=== PATIENT | male | born 1960 | race Caucasian/White ===

== ENCOUNTER → 2023-11-27 09:17 | Outpatient (REF) | payer BC, SELFPAY | LOC: DHCBC HW 09:17 | PROVIDERS: ATTENDING PHYSICIAN Internal Medicine; FAMILY PHYSICIAN Internal Medicine | DX: I25.10 Atherosclerotic heart disease of native coronary artery without angina pectoris (principal); R06.09 Other forms of dyspnea | CPT/HCPCS: 93306 ==

== ENCOUNTER → 2023-12-16 08:16 | Outpatient (REF) | payer BC, SELFPAY | LOC: DHCBC/DCA 08:16 | PROVIDERS: ATTENDING PHYSICIAN Internal Medicine; FAMILY PHYSICIAN Internal Medicine | DX: R06.09 Other forms of dyspnea (principal); I25.10 Atherosclerotic heart disease of native coronary artery without angina pectoris | CPT/HCPCS: 78452; 93017; A9500 ==

== ENCOUNTER → 2024-02-16 | Outpatient (REF) | payer BC, SELFPAY | LOC: DHSLP | PROVIDERS: ATTENDING PHYSICIAN Internal Medicine | DX: G47.33 Obstructive sleep apnea (adult) (pediatric) (principal) | CPT/HCPCS: 95800 ==

== ENCOUNTER 2024-08-13 06:33 | Day surgery (SDC) | payer BC, SELFPAY ==
[2024-08-05 09:06] VITALS: BMI 36.8
[2024-08-05 11:08] LABS: Hematocrit 42.4 % (39.0-52.0); Hemoglobin 14.8 g/dL (13.0-18.0); Mean Corp Hgb Conc. 34.9 g/dL (33.0-37.0); Mean Corpuscular Hgb 30.3 pg (27.0-31.0); Mean Corpuscular Volume 86.7 fL (80.0-94.0); Mean Platelet Volume 9.5 fL (7.4-10.4); Platelet Count 233 10^3/uL (130-400); Red Blood Cell Count 4.89 10^6/uL (4.70-6.10); Red Cell Dist. Width 12.3 % (11.5-14.5); White Blood Cell Count 8.1 10^3/uL (4.8-10.8)
[2024-08-05 11:35] LABS: Blood Urea Nitrogen 17 mg/dl (9-20); Calcium 10.4 mg/dl (8.4-10.2); Carbon Dioxide 28 mmol/L (22-30); Chloride 101 mmol/L (98-107); Estimated Creatinine Clearance 107 ml/min; Glucose 107 mg/dl (70-99); Potassium 4.4 mmol/L (3.5-5.1); Sodium 143 mmol/L (135-145); eGFR > 60.00
[2024-08-13] VITALS (10 sets, daily range): BP systolic 130–154; BP diastolic 75–89; BMI 36.8
--- NOTE | 2024-08-13 10:48 | HP.FOC2 ---
Focused History & Physical
Chief Complaint
HPI:
Chief Complaint: Umbilical hernia
HPI / Indication for Planned Procedure: 63-year-old male recently seen in outpatient surgical evaluation secondary to a longstanding history of umbilical hernia that he has been following expectantly for a decade or longer. The hernia slowly
increased in size over the years. He has an awareness of the hernia being present and occasional mild discomfort but no significant pain. Outpatient evaluation confirmed the presence of a large, chronically incarcerated umbilical hernia. Patient
presents today for scheduled operative correction.
Relevant Past Medical History: Other (Dyslipidemia, hypertension, obesity with BMI of 38, TEMI on CPAP, mild ascending aortic dilation, CAD, hypothyroidism, congenital single kidney with CRI, former smoker)
Relevant Social History: Negative
Relevant Family History: Negative
Relevant Past Surgical History: Positive for (Appendectomy)
Review of Systems
Review of Pertinent Systems: All Systems Negative
Medication
See Medication form for detailed medications: Yes
Medication List (including Herbals & OTC):
allopurinol 100 mg tablet 100 mg PO DAILY 08/05/24
aspirin 81 mg capsule 81 mg PO DAILY 08/05/24
atorvastatin 20 mg tablet 20 mg PO DAILY 08/05/24
cholecalciferol (vitamin D3) 10 mcg (400 unit) chewable tablet (Vitamin D3) 10 mcg PO DAILY 08/05/24
escitalopram oxalate 10 mg tablet 10 mg PO DAILY 08/05/24
levothyroxine 200 mcg tablet (Synthroid) 200 mcg PO DAILY 08/05/24
losartan 100 mg tablet 100 mg PO DAILY 08/05/24
metformin 500 mg tablet 500 mg PO DAILY 08/05/24
milk thistle 500 mg capsule 250 mg PO DAILY 08/05/24
tirzepatide 2.5 mg/0.5 mL subcutaneous pen injector (Mounjaro) 2.5 mg SC QWEEK 08/05/24
Medications Reviewed: Yes
Allergies and Reactions
Patient has Allergies: No
Noted Allergies and Reactions:
Allergy/AdvReac Type Severity Reaction Status Date / Time
No Known Allergies Allergy Verified 08/05/24 15:20
Pertinent Physical Exam
All Other Systems: Negative
Head/Neck: Normal
Lungs: Normal
Heart: Normal
Abdomen: Other (Chronically incarcerated umbilical hernia, 3 cm fascial defect estimated)
Extremities: Normal
Neurological: Normal
Diagnosis / Assessment
Assessment: 63-year-old male presenting for scheduled operative correction symptomatic, enlarging umbilical hernia
Plan / Procedure
Robotic assisted laparoscopic repair umbilical hernia with mesh
Anesthesia/Sedation to be done by Anesthesia Provider: Yes
[2024-08-13 11:29] LABS: Glucose - Point of Care 111 mg/dl (70-99)
[2024-08-13] MEDS: TYLENOL 1000 MG PO (11:30)
--- NOTE | 2024-08-13 13:19 | W.SUR.PREOP ---
Pre-Operative Surgical Note
-
I have examined this patient prior to the performance of the scheduled procedure.
The patient's condition is unchanged from the time of the current History and
Physical and the patient is able to undergo the scheduled procedure.
[2024-08-13 13:32] LABS: Glucose - Point of Care 95 mg/dl (70-99)
--- NOTE | 2024-08-13 16:44 | W.IMMPOSTOP ---
Addendum entered and electronically signed by Luis Antonio Dhillon MD 08/13/24 18:27:
#[id number]
Original Note:
Surgical Immed Post Op Note
-
Primary Surgeon: Jacquie
Assisting Surgeon: Monserrat Carrillo PA-C
Pre-op Diagnosis: Incarcerated umbilical hernia
Post-op Diagnosis: Incarcerated umbilical hernia; 3 cm
Procedure Performed: Robotic assisted laparoscopic DEVYN repair incarcerated umbilical hernia with mesh; Bard soft mesh 15 cm x 13 cm
Robotic assisted laparoscopic partial omentectomy
Anesthesia Type: GETA +0.25% Marcaine
Specimen / Cultures: None
Estimated Blood Loss: 8 mL
Complications: None immediate
Operative Findings: Large umbilical hernia containing chronically incarcerated omentum. Partial omentectomy of incarcerated contents to facilitate reduction. Fascial defect approximately 3 cm. Closed with 0 PDS STRATAFIX in running continuous
fashion. Underlay preperitoneal mesh repair, Bard soft 15 cm vertically by 13 cm in width secured with interrupted 2-0 Vicryl suture. Peritoneal flap closed with 2-0 Monocryl STRATAFIX spiral.
The assistance of Monserrat Carrillo PA-C was required due to the complexity of the procedure. During the procedure Monserrat Carrillo PA-C assisted with port placement, robotic instrumentation and suture material exchanges, and closure of the surgical incision
sites. I was present for the entirety of the operative procedure.
[2024-08-13] MEDS: DILAUDID 0.25 MG IV ×2 (17:07→17:26)
[2024-08-13] MEDS: ROXICODONE 5 MG PO (18:17)
== END 2024-08-13 18:28 | disposition home or self-care (01) ==
LOC: SDS 06:33
PROVIDERS: ATTENDING PHYSICIAN Surgery; FAMILY PHYSICIAN Internal Medicine
DX: K42.0 Umbilical hernia with obstruction, without gangrene (principal)
CPT/HCPCS: 49594; 80048; 82962; 85027; 93005; C1781

== ENCOUNTER → 2024-10-05 08:05 | Outpatient (REF) | payer BC, SELFPAY | LOC: RAD 08:05 | PROVIDERS: ATTENDING PHYSICIAN Internal Medicine Critical Care Medicine; FAMILY PHYSICIAN Internal Medicine | DX: Z87.891 Personal history of nicotine dependence (principal) | CPT/HCPCS: 71271 ==

== ENCOUNTER → 2024-11-01 10:07 | Outpatient (REF) | payer BC, SELFPAY ==
--- NOTE | 2024-10-27 14:50 | PN.DIAED02 ---
Referral
DSME Class Series Code: [id number]
Referred For: Diabetes Self-Management Training, Medical Nutrition Therapy, Self-Blood Glucose Monitoring, Long-Term Complication Instruction, Accute Complication Instruction, Continuous Glucose Monitoring, Medication management
PHI Release Authorization Form Signed: Yes
Patient Problems:
Current Active Problems
Problem Status Onset
Type 2 diabetes mellitus without complications
Demographic
(1) Type 2 diabetes mellitus without complications
Status: Acute
Qualifiers:
Diabetes mellitus retirement insulin use: without long term care administrator use Qualified Code(s): E11.9 - Type 2 diabetes mellitus without complications
Code(s): E11.9 - Type 2 diabetes mellitus without complications
Patient's primary language-: Telugu
Education: College degree
Occupation: Professional
Hours Worked/Week: > 40
- Social
Living Arrangements: Self & spouse
- Learning Methods
Preferred Method: Reading
Barriers to Learning: None
Glycemic Control
- Blood Glucose Monitoring Assessment
Date: 07/11/24 (FBS: 107 mg/dL)
Blood glucose monitoring at home: No (educated Dirk on the [employer] Flex)
- Hyperglycemia Assessment
Experiences Hyperglycemia: No
- Hypoglycemia Assessment
Patient carries glucose source: No
Patient experiences hypoglycemia: No
- Hemoglobin A1c
Date: 07/11/24
A1C Percentage (%): 8.3
Medical History of Diabetes
Family Diabetes History: Mother
Previous Diabetes Education: No
Previous visit with Dietitian: No
Complications/Comorbidity/Specialist: Autoimmune (hypothroid Synthroid 0.2 mg daily), Hyperlipidemia (Atrovastin 20 mg daily), Metabolic (Metformin 500 mg daily, Mounjaro 7.5 mg weekly), Other / symptoms (Gout treated wth allopurinol)
Current Home Medication
- Insulin Management
Patient adjusts own insulin dosages: No (Metformin and Monjouro)
Measures
- Anthropometrics
Height: 6 ft 4 in
Actual Weight: 297 lb
- Blood Pressure / Pulse
Blood pressure: 117/75
Pulse: 80
- Diabetes Management
Medical Management for Diabetes: Complete physical exam (10/08/20), Dental exam (09/20/24), Dilated eye exam (07/22/24), Foot exam (02/02/21), Pneumonia vaccination (03/03/21), Other (Covid vaccine: 08/14/21)
Self-Care
- Tobacco Usage
Do you now, or have you ever smoked?: Quit more than 1 year ago
- Alcohol & Drugs Usage
Drinks Alcohol: No
- Meals & Dining
Meals & Dining: Patient skips meals: Yes, Food Intolerance / Allergy: No, Cultural / Hindu Dietary Needs: No
Primary Food Associate Application Developer: Spouse
Primary Configuration Specialist: Spouse
Dining Out Frequency: 1-3x per week
- Physical Activity
Physical Limitation: Yes (torn meniscus)
- Patient-Self Assessment
Diabetes Knowledge: Poor
Feelings About Diabetes: Adaptation
Importance of Health: Extremely
Diabetes Interferes With:: Nothing
Depression Survey Score: 4
- Diabetes Identification
Carries Diabetes Identification: No
Diabetes Identification Information Provided: No
Care Plan
- Education Needs
Patient Education Needs: Diabetes disease process, Chronic complications, Acute complications, Medication, Monitoring, Physical activity, Psychosocial Adjustment, Nutritional management, Goal setting & problem solving
Recommended Diabetes Training Program based on assessment: Outpatient Diabetes Education Program
- Plan of Care
Plan of Care:
Dirk presented for his initial assessment for the October DSME course. He was recently diagnosed with diabetes in June,. He was started on Metformin and is currently taking 500 mg daily. On her referral for class it noted his
dose of Metformin 500 mg BID. I asked him to follow up with he MD to confirm correct dosage and communicate to them that he has been taking 1 tablet daily. He was also started on Monjouro and is currently taking 7.5 mg weekly since July. He has
been recovering from a hernia surgery in July as well as a torn meniscus. He stated one of his goals is to now start an exercise routine and increase to 30 minutes 3 times per week. Dirk was able return demonstrate a fingerstick blood glucose
check with the [employer] flex meter. I discussed a monitoring schedule and target glucose values. Written material was provided and Dirk was encouraged to reach out to the office with any concerns prior to the class session.
--- NOTE | 2024-10-27 15:10 | PN.DIAED04 ---
Education Record
- Education Record
Class Attended: Other (Initial Assessment DSME course)
DSME Class Series Code: [id number]
Instructor: Nurse Practitioner (LINDA Wiley)
Pre-Program Knowledge: Needs review / Assistance
Pre-Test Score (%): 59
Goals
- Goal 1
Being Active: Exercise 30 minutes-5 times per week
Goals To Be Evaluated: Exercise 30 mins-5x/week
- Goal 2
Healthy Eating: Follow meal plan
Goals To Be Evaluated: Follow meal plan
- Goal 3
Monitoring: Follow monitoring schedule
Goals To Be Evaluated: Follow monitoring times
--- NOTE | 2024-11-02 15:43 | PN.DIAED14 ---
This is to notify you that your patient with diabetes, MIGUEL ANGEL VAZQUEZ ( 1960), has enrolled in our diabetes self-management classes that are being held at [facility].
These classes will include an introduction to diabetes, diet, medication, exercise and prevention of complications. At the end of our class series, you will receive a report of your patient's participation and progress for your records.
Please contact me at the Diabetes Center, , if there is any particular information regarding your patient that might be helpful to me.
Sincerely,
Jeremy MCKEON-TAWNYA,[facility] [place]
--- NOTE | 2024-11-02 15:43 | PN.DIAED04 ---
<Erendira Hernandez - Last Filed: 11/02/24 15:43>
Education Record
- Education Record
Class Attended: Class 1
DSME Class Series Code: [id number]
Instructor: Nurse Practitioner (LINDA Wiley)
Class Length (mins): 120
Post-Class 1 Test Score (%): 100
<Jennifer Zhang - Last Filed: 11/02/24 16:16>
Education Record
- Education Record
Class Curriculum:
Outpatient Diabetes Education Program:
Class 1 (120 minutes)
Describe the diabetes disease process and treatment options
Diabetes management
Develop personal strategies to promote health and behavior change
Integrate psychosocial adjustment for daily living
Monitor blood glucose and other parameters. Interpret and use the results for self-management decision making
Prevent, detect, and treat acute complications
--- NOTE | 2024-11-04 18:02 | PN.DIAED06 ---
Meal Plans - Regular
- Meal Plan
Diabetic Meal Plan Name: 2200 calories
Breakfast - Total Carbohydrate (grams): 60
Breakfast - Starch Carbohydrate: 0
Breakfast - Fruit Carbohydrate: 0
Breakfast - Milk Carbohydrate: 0
Breakfast - Nonstarchy Vegetables: Yes
Breakfast - Meat/Protein: 1
Breakfast - Fat: 2
Morning Snack - Total Carbohydrate (grams): 30
Morning Snack - Starch Carbohydrate: 0
Morning Snack - Fruit Carbohydrate: 0
Morning Snack - Milk Carbohydrate: 0
Morning Snack - Nonstarchy Vegetables: Yes
Morning Snack - Meat/Protein: 0.5
Morning Snack - Fat: 0
Lunch - Total Carbohydrate (grams): 45
Lunch - Starch Carbohydrate: 0
Lunch - Fruit Carbohydrate: 0
Lunch - Milk Carbohydrate: 0
Lunch - Nonstarchy Vegetables: Yes
Lunch - Meat/Protein: 3
Lunch - Fat: 2
Afternoon Snack - Total Carbohydrate (grams): 30
Afternoon Snack - Starch Carbohydrate: 0
Afternoon Snack - Fruit Carbohydrate: 0
Afternoon Snack - Milk Carbohydrate: 0
Afternoon Snack - Nonstarchy Vegetables: Yes
Afternoon Snack - Meat/Protein: 0.5
Afternoon Snack - Fat: 0
Dinner - Total Carbohydrate (grams): 45
Dinner - Starch Carbohydrate: 0
Dinner - Fruit Carbohydrate: 0
Dinner - Milk Carbohydrate: 0
Dinner - Nonstarchy Vegetables: Yes
Dinner - Meat/Protein: 4
Dinner - Fat: 2
Evening Snack - Total Carbohydrate (grams): 15
Evening Snack - Starch Carbohydrate: 0
Evening Snack - Fruit Carbohydrate: 0
Evening Snack - Milk Carbohydrate: 0
Evening Snack - Nonstarchy Vegetables: Yes
Evening Snack - Meat/Protein: 0
Evening Snack - Fat: 0
== END ==
LOC: DES 10:07
PROVIDERS: ATTENDING PHYSICIAN Internal Medicine
DX: E11.65 Type 2 diabetes mellitus with hyperglycemia (principal)
CPT/HCPCS: 99078

== ENCOUNTER → 2024-11-08 14:05 | Outpatient (REF) | payer BC, SELFPAY | LOC: DES 14:05 | PROVIDERS: ATTENDING PHYSICIAN Internal Medicine | DX: E11.65 Type 2 diabetes mellitus with hyperglycemia (principal) | CPT/HCPCS: 99078 ==

== ENCOUNTER → 2024-11-15 11:27 | Outpatient (REF) | payer BC, SELFPAY | LOC: DES 11:27 | PROVIDERS: ATTENDING PHYSICIAN Internal Medicine | DX: E11.65 Type 2 diabetes mellitus with hyperglycemia (principal) | CPT/HCPCS: 99078 ==

== ENCOUNTER → 2024-11-22 08:45 | Outpatient (REF) | payer BC, SELFPAY ==
--- NOTE | 2024-11-23 10:42 | PN.DIAED04 ---
Education Record
- Education Record
Class Attended: Class 4
DSME Class Series Code: [id number]
Instructor: Nurse Practitioner (LINDA Wiley)
Class Curriculum:
Outpatient Diabetes Education Program:
Class 4 (120 minutes)
Develop personal strategies to promote health and behavior change
Incorporate physical activity into lifestyle
Utilize medications safety for maximum therapeutic effectiveness
Understand different medication/insulin mechanism of action
Preparing for travel
Class Length (mins): 120
Post-Class 4 Test Score (%): 93
== END ==
LOC: DES 08:45
PROVIDERS: ATTENDING PHYSICIAN Internal Medicine
DX: E11.65 Type 2 diabetes mellitus with hyperglycemia (principal)
CPT/HCPCS: 99078

== ENCOUNTER → 2024-11-29 13:26 | Outpatient (REF) | payer BC, SELFPAY ==
--- NOTE | 2024-12-01 12:18 | PN.DIAED16 ---
This is to notify you that your patient with diabetes, MIGUEL ANGEL VAZQUEZ ( 1960), has attended the entire series of Diabetes Self-Management Education Classes.
Class 1 (120 minutes): Diabetes Overview - monitoring, stress/psychosocial adjustment, support, goal setting
Class 2 (120 minutes): Meal Planning - serving sizes, menu plans
Class 3 (120 minutes): Introduction to Carbohydrate Counting, Analyzing Food Labels
Class 4 (120 minutes): Medication, Exercise and Activity
Class 5 (120 minutes): Sick Day Management, Strategies to Reduce Complications, Problem Solving, Resources
The following behavioral goals were identified:
Exercise 30 mins-5x/week
Follow meal plan
Follow monitoring times
A follow-up call will be made within three to six months to evaluate attainment of these goals and to check post-program Hemoglobin A1c and overall progress. All class participants are encouraged to contact me if I can be any further assistance in
learning how to manage their diabetes.
Sincerely,
Jeremy MCKEON-, [facility]
== END ==
LOC: DES 13:26
PROVIDERS: ATTENDING PHYSICIAN Internal Medicine
DX: E11.65 Type 2 diabetes mellitus with hyperglycemia (principal)
CPT/HCPCS: 99078

== ENCOUNTER → 2025-04-19 08:22 | Outpatient (REF) | payer BC, SELFPAY | LOC: RAD 08:22 | PROVIDERS: ATTENDING PHYSICIAN Nurse Practitioner Family | DX: M54.12 Radiculopathy, cervical region (principal) | CPT/HCPCS: 72052; 72072 ==

== ENCOUNTER → 2025-04-27 15:11 | Outpatient (REF) | payer BC, SELFPAY | LOC: DHSLP 15:11 | PROVIDERS: ATTENDING PHYSICIAN Internal Medicine Critical Care Medicine; FAMILY PHYSICIAN Internal Medicine | DX: G47.33 Obstructive sleep apnea (adult) (pediatric) (principal) | CPT/HCPCS: 95800 ==

== ENCOUNTER → 2025-05-04 09:41 | Outpatient (REF) | payer BC, SELFPAY | LOC: RAD 09:41 | PROVIDERS: ATTENDING PHYSICIAN Nurse Practitioner Family | DX: I25.10 Atherosclerotic heart disease of native coronary artery without angina pectoris (principal); R91.8 Other nonspecific abnormal finding of lung field; E78.5 Hyperlipidemia, unspecified | CPT/HCPCS: 93880 ==

== ENCOUNTER → 2025-05-04 09:45 | Outpatient (REF) | payer SELFPAY | LOC: RAD 09:45 | PROVIDERS: ATTENDING PHYSICIAN Nurse Practitioner Family | DX: I25.10 Atherosclerotic heart disease of native coronary artery without angina pectoris (principal); R91.8 Other nonspecific abnormal finding of lung field; E78.5 Hyperlipidemia, unspecified | CPT/HCPCS: 75571 ==